=== PATIENT | female | born 1960 | race Two or more races ===

== ENCOUNTER 2020-11-02 06:00 | Day surgery (SDC) | payer OTHER ==
[~2020-11-02] VITALS: Ht 152.4 cm; Wt 51.4 kg
[~2020-11-02 06:00] MED LIST: AMLO-211 PO; GLIP5TAB22 PO; METF-754 PO; OXYC5CAP2 PO; SIMV20TA19 PO; VALS160T3 PO
[2020-11-02 06:54] VITALS: BP 129/89
[2020-11-02] MEDS ORDERED: SODIUM CHLORIDE 0.9% 1,000 ML IV SCH (07:00)
[2020-11-02] MEDS ORDERED: NALOXONE 1 MG/ML, 2ML ONE (07:55)
[2020-11-02] MEDS ORDERED: FENTANYL PF 100 MCG/2ML ONE (07:55)
[2020-11-02] MEDS ORDERED: FLUMAZENIL 0.1 MG/1 ML, 5ML ONE (07:55)
[2020-11-02] MEDS ORDERED: MIDAZOLAM 1 MG/ML, 5ML ONE (07:55)
== END 2020-11-02 10:20 | disposition home or self-care (01) ==
LOC: OUT 06:00
PROVIDERS: ATTEND Internal Medicine Hematology & Oncology
DX: R22.2 Localized swelling, mass and lump, trunk (principal); C55 Malignant neoplasm of uterus, part unspecified; I10 Essential (primary) hypertension; E11.9 Type 2 diabetes mellitus without complications; K21.9 Gastro-esophageal reflux disease without esophagitis; Z79.899 Other long term (current) drug therapy; Z87.891 Personal history of nicotine dependence
CPT/HCPCS: 20206; 77012; 88307; 99156; 99157; J2250; J3010; J2310